=== PATIENT | female | born 1970 | race African-American/Black ===

== ENCOUNTER 2016-07-28 12:23 | Emergency (ER) | payer OTHER ==
[~2016-07-28 12:23] MED LIST: ALLERCLEAR10 MG PO; AMLODIPINE BESYL5 MG PO; ASPIRIN81 M2 PO; ATENOLOL25 MG PO; BACTRIM DS TABL1 TA1 PO; BUSPIRONE HCL7.5 MG PO; CIPRO PO; ESCITALOPRAM OX10 MG PO; FLAGYL PO; FLEXERIL10 M1 PO; LISINOPRIL10 MG PO; LISINOPRIL20 MG PO; MACROBID 100 M100 MG PO; MACROBID100 MG PO; MACRODANTIN PO; METOPROLOL SUCC25 MG PO; METRONIDAZOLE PO; MONTELUKAST SOD10 MG PO; NAPROSYN500 MG PO; OMEPRAZOLE20 M2 PO; PYRIDIUM PO; PYRIDIUM100 MG PO; TENORMIN25 MG PO; VIBRAMYCIN100 M1 PO; VICODIN 5/1 TAB 5/50 PO; VOLTAREN75 MG PO
== END 2016-07-28 13:26 | disposition home or self-care (01) ==
LOC: SED 12:23
DX: S09.90XA Unspecified injury of head, initial encounter (principal); H10.9 Unspecified conjunctivitis; H00.011 Hordeolum externum right upper eyelid; I10 Essential (primary) hypertension; F41.9 Anxiety disorder, unspecified; Z88.0 Allergy status to penicillin; W22.8XXA Striking against or struck by other objects, initial encounter; Y99.0 Civilian activity done for income or pay
CPT/HCPCS: 99282; 99283

== ENCOUNTER 2016-10-05 15:53 | Emergency (ER) | payer OTHER ==
--- NOTE | ~2016-10-05 | CT4 ---
[facility] A Service [facility] RADIOLOGY TEXT RESULTS PATIENT: FARHAN SANCHEZ LOCATION: SED : 72 UNIT #: [id number] AGE: [address]: CARLITOS SHI SEX: F ORDER DR: [id number] [place] [id number] E MR#: [id number] Acc #: [id number] NAME: FARHAN SANCHEZ. : 1970 SEX: F STUDY DATE/TIME: 10/05/2016 17:48 UNIT: SED ROOM: STUDY DESCRIPTION: CT Abd and Pelv Wo Cont Attending Physician: Norman Shi Ordering Physician: Norman Shi Primary Care Physician: Jae Mares M.D. MEDICAL IMAGING REPORT This report is preliminary unless electronic signature is present. EXAM CT abdomen and pelvis without contrast. HISTORY Left lower abdomen pain for [address] exam was performed with one or more of the following radiation dose reduction techniques: automatic exposure control, adjustment of mA and/or kV according to patient size, and iterative reconstruction. FINDINGS CT abdomen and pelvis was performed without contrast. CT ABDOMEN. The liver, gallbladder, spleen, pancreas, kidneys, and right adrenal gland are normal. 1.6 cm left adrenal adenoma is incidentally noted. There is also an incidental approximately 1 cm cyst in the inferior right hepatic lobe. Normal caliber abdominal aorta. No bowel dilatation. CT PELVIS. Normal appendix. No free fluid. The uterus and adnexa are unremarkable. Urinary bladder is normal. IMPRESSION 1. No acute findings in the abdomen or pelvis. No urinary calculi or obstruction and no bowel obstruction. 2. Incidental 1.6 cm left adrenal adenoma. [facility] A Service [facility] RADIOLOGY TEXT RESULTS PATIENT: FARHAN SANCHEZ LOCATION: SED : 72 UNIT #: [id number] AGE: [address]: CARLITOS SHI SEX: F ORDER DR: Dictated by... David Keven Norman.D. THIS IS AN ELECTRONICALLY VERIFIED REPORT David Leone M.D. at 10/05/2016 10:53 PM SHREE/asael TD: 10/05/2016 22:33 JOB #: [id number] MEDICAL IMAGING REPORT Page 1 of 1
[2016-10-05] MEDS ORDERED: DITROPAN5 MG PO (15:57)
[2016-10-05 16:30] LABS: URINE SOURCE CLEAN CATCH
[2016-10-05 16:32] LABS: URINE APPEARANCE SL CLOUDY; URINE BILIRUBIN NEG (NEG); URINE BLOOD 1+ (NEG); URINE COLOR YELLOW; URINE GLUCOSE NEG (NORM); URINE KETONE NEG (NEG); URINE LEUKOCYTE ESTERASE NEG (NEG); URINE NITRATE NEG (NEG); URINE PROTEIN NEG (NEG); URINE SPECIFIC GRAVITY 1.015 (1.003-1.035); URINE UROBILINOGEN 0.2 MG/DL (NORM)
[2016-10-05 16:46] LABS: MICRO INDICATED? YES
[2016-10-05 16:50] LABS: CULTURE INDICATED? YES; URINE BACTERIA 2+ (NEG); URINE RBC 0-2 /[HPF] (0-2); URINE SQUAMOUS EPITHELIAL CELL MANY /[HPF]
[2016-10-05 17:10] LABS: BASOPHIL# 0.1 X10e3 (0-0.3); BASOPHIL% 0.8 % (0-2.5); EOSINOPHIL# 0.2 X10e3 (0-0.7); EOSINOPHIL% 2.5 % (0.0-7.0); HEMOGLOBIN 11.3 gm/dL (12.0-16.0); LYMPHOCYTE# 3.8 X10e3 (1.0-3.5); MEAN CELL VOLUME 72.7 FL (83-96); MEAN CORPUSCULAR HEMOGLOBIN 22.8 PG (28-34); MEAN CORPUSCULAR HGB CONC 31.4 g/dL (30-36); MEAN PLATELET VOLUME 8.1 FL (6.5-11.5); MONOCYTE# 0.4 X10e3 (0-1.0); MONOCYTE% 4.4 % (3.0-12.0); NEUTROPHIL# 5.5 X10e3 (1.5-7.1); NEUTROPHIL% 54.3 % (40-75); PLATELET COUNT 313 X10e3 (140-420); RED BLOOD COUNT 4.95 X10e (3.90-5.30); RED CELL DISTRIBUTION WIDTH 15.4 % (11.0-15.5)
[2016-10-05 17:20] LABS: DIFF IND YES
[2016-10-05 17:22] LABS: ALBUMIN SERUM 4.2 g/dL (3.5-5.0); BILIRUBIN, DIRECT 0.1 mg/dL (0.0-0.2); BILIRUBIN,INDIRECT 0.1 mg/dL (0.0-0.9); BILIRUBIN,TOTAL 0.2 mg/dL (0.2-2.0); BUN/CREATININE RATIO 14.44; CALCIUM SERUM 8.9 mg/dL (8.4-10.2); CREATININE SERUM 0.9 mg/dL (0.6-1.4); GLOM FILT RATE Estimated 89.6 mL/min (>60); POTASSIUM 3.5 mmol/L (3.5-5.1); PROTEIN TOTAL SERUM 6.9 g/dL (6.0-8.3)
[2016-10-05 17:37] LABS: PLATELET ESTIMATE NORMAL (NORMAL); RBC NORMAL YES
[2016-10-08 23:41] LABS: CHLAMYDIA TRACH Detected (Not Detected); N GONOR Not Detected (Not Detected)
== END 2016-10-05 19:23 | disposition home or self-care (01) ==
LOC: SED 15:53
PROVIDERS: Nurse Practitioner
DX: R10.32 Left lower quadrant pain (principal); R19.7 Diarrhea, unspecified; Z88.0 Allergy status to penicillin; Z79.899 Other long term (current) drug therapy
CPT/HCPCS: 74176; 80048; 80076; 81003; 82150; 83690; 84703; 85025; 87086; 87210; 87491; 87591; 87808; 87905; 99284